=== PATIENT | male | born 1945 | race Caucasian/White ===

== ENCOUNTER 2023-04-02 09:57 | Outpatient (CLI) | payer MEDICARE, BC | END 2023-04-02 09:58 | disposition home or self-care (01) | LOC: SCSRAD 09:57 | PROVIDERS: ATTEND Family Medicine | DX: R05.9 Cough, unspecified (principal); I51.7 Cardiomegaly; J94.8 Other specified pleural conditions | CPT/HCPCS: 71046 ==